=== PATIENT | female | born 1965 | race Caucasian/White ===

== ENCOUNTER 2017-11-06 12:59 | Emergency (ER) | payer OTHER ==
[~2017-11-06] VITALS: Ht 160 cm; Wt 77.1 kg
[2017-11-06] MEDS ORDERED: MECLIZINE 25 MG (ANTIVERT) TAB PO ONE (13:15)
[2017-11-06] MEDS ORDERED: cloNIDine 0.1 MG (CATAPRES) TAB PO ONE (13:15)
--- NOTE | 2017-11-06 13:18 | ED General ---
General Stated Complaint: BLOOD PRESSURE ISSUES Source of Information: Patient Exam Limitations: No Limitations History of Present Illness Time Seen by Provider: 13:17 Initial Comments To ER with intermittent dizziness, headache, vision changes, hypertension since this morning. Blood pressure was found at work to be 140/105. She has no history of hypertension she states. She did finish Cipro for a bladder infection a few days ago Timing/Duration: 4-6 Hours Severity: Moderate Associated Systoms: Headaches Allergies and Home Medications Allergies Coded Allergies: No Known Drug Allergies (Unverified , 11/06/17) Home Medications Alprazolam 0.5 Mg Tablet, (Reported) Aspirin 325 Mg Tablet, 325 MG PO, (Reported) Celecoxib 200 Mg Capsule, (Reported) Cyclobenzaprine HCl 10 Mg Tablet, (Reported) Phentermine HCl 37.5 Mg Tablet, (Reported) Pregabalin 150 Mg Capsule, (Reported) Pregabalin 75 Mg Capsule, (Reported) Varenicline Tartrate 1 Mg Tablet, (Reported) Constitutional: see HPI EENTM: see HPI, blurred vision Respiratory: no symptoms reported Cardiovascular: no symptoms reported Genitourinary: no symptoms reported Musculoskeletal: no symptoms reported Skin: no symptoms reported Psychiatric/Neurological: See HPI, Headache Hematologic/Lymphatic: No Symptoms Reported Immunological/Allergic: no symptoms reported Past Fnpwojz-Xljtzf-Oteexv Hx Patient Social History Recent Foreign Travel: No Contact w/Someone Who Travel: No Physical Exam Vital Signs Vital Sign - Last 12Hours 11/06/17 13:17 Temp 98.0 Pulse 91 Resp 20 B/P (MAP) 170/106 (127) Pulse Ox 95 O2 Delivery Room Air Capillary Refill : General Appearance: No Apparent Distress, WD/WN Eyes: Bilateral Eye Normal Inspection, Bilateral Eye PERRL, Bilateral Eye EOMI HEENT: PERRL/EOMI, TMs Normal, Normal ENT Inspection Neck: Full Range of Motion, Normal Inspection Respiratory: Normal Breath Sounds, No Accessory Muscle Use, No Respiratory Distress Cardiovascular: Regular Rate, Rhythm, Normal Peripheral Pulses Gastrointestinal: Normal Bowel Sounds, Non Tender, Soft Extremity: Normal Capillary Refill, Normal Inspection Neurologic/Psychiatric: Alert, Oriented x3, No Motor/Sensory Deficits, Other ( no nystagmus) Skin: Normal Color, Warm/Dry Comments Blood pressure is 176/106 Progress/Results/Core Measures Suspected Sepsis SIRS Temperature: Pulse: Respiratory Rate: Laboratory Tests 11/06/17 13:45: White Blood Count 8.5 Blood Pressure / Mean: Laboratory Tests 11/06/17 13:45: Creatinine 0.70, Platelet Count 351, Total Bilirubin 0.6 Results/Orders Lab Results Laboratory Tests Test 11/06/17 13:11 11/06/17 13:45 Range/Units Urine Color YELLOW Urine Clarity CLEAR Urine pH 6.5 5-9 Urine Specific [place] 1.010 L 1.016-1.022 Urine Protein NEGATIVE NEGATIVE Urine Glucose (UA) NEGATIVE NEGATIVE Urine Ketones NEGATIVE NEGATIVE Urine Nitrite NEGATIVE NEGATIVE Urine Bilirubin NEGATIVE NEGATIVE Urine Urobilinogen NORMAL NORMAL MG/DL Urine Leukocyte Esterase 1+ H NEGATIVE Urine RBC (Auto) 2+ H NEGATIVE Urine RBC 2-5 H /HPF Urine WBC NONE /HPF Urine Squamous Epithelial Cells 10-25 H /HPF Urine Crystals NONE /LPF Urine Bacteria NEGATIVE /HPF Urine Casts NONE /LPF Urine Mucus NEGATIVE /LPF Urine Culture Indicated NO White Blood Count 8.5 4.3-11.0 10^3/uL Red Blood Count 4.81 4.35-5.85 10^6/uL Hemoglobin 14.5 11.5-16.0 G/DL Hematocrit 43 35-52 % Mean Corpuscular Volume 89 80-99 FL Mean Corpuscular Hemoglobin 30 25-34 PG Mean Corpuscular Hemoglobin Concent 34 32-36 G/DL Red Cell Distribution Width 13.6 10.0-14.5 % Platelet Count 351 130-400 10^3/uL Mean Platelet Volume 9.7 7.4-10.4 FL Neutrophils (%) (Auto) 67 42-75 % Lymphocytes (%) (Auto) 21 12-44 % Monocytes (%) (Auto) 10 0-12 % Eosinophils (%) (Auto) 2 0-10 % Basophils (%) (Auto) 1 0-10 % Neutrophils # (Auto) 5.7 1.8-7.8 X 10^3 Lymphocytes # (Auto) 1.7 1.0-4.0 X 10^3 Monocytes # (Auto) 0.8 0.0-1.0 X 10^3 Eosinophils # (Auto) 0.2 0.0-0.3 10^3/uL Basophils # (Auto) 0.1 0.0-0.1 10^3/uL Sodium Level 140 135-145 MMOL/L Potassium Level 3.8 3.6-5.0 MMOL/L Chloride Level 104 98-107 MMOL/L Carbon Dioxide Level 27 21-32 MMOL/L Anion Gap 9 5-14 MMOL/L Blood Urea Nitrogen 11 7-18 MG/DL Creatinine 0.70 0.60-1.30 MG/DL Estimat Glomerular Filtration Rate > 60 BUN/Creatinine Ratio 16 Glucose Level 90 70-105 MG/DL Calcium Level 9.3 8.5-10.1 MG/DL Total Bilirubin 0.6 0.1-1.0 MG/DL Aspartate Amino Transf (AST/SGOT) 34 5-34 U/L Alanine Aminotransferase (ALT/SGPT) 52 0-55 U/L Alkaline Phosphatase 111 40-136 U/L Troponin I < 0.30 <0.30 NG/ML Total Protein 7.4 6.4-8.2 GM/DL Albumin 4.1 3.2-4.5 GM/DL Thyroid Stimulating Hormone (TSH) 1.25 0.35-4.94 UIU/ML Free Thyroxine 1.06 0.70-1.48 NG/DL My Orders Orders - RYANN GRAHAM [employer] Cbc With Automated Diff (11/06/17 13:15) Comprehensive Metabolic Panel (11/06/17 13:15) Ua Culture If Indicated (11/06/17 13:15) Ct Head Wo (11/06/17 13:15) Clonidine Tablet (Catapres Tablet) (11/06/17 13:15) Troponin I (11/06/17 13:15) Thyroid Stimulating Hormone (11/06/17 13:15) Free T4 (Free Thyroxine) (11/06/17 13:15) Meclizine Tablet (Antivert Tablet) (11/06/17 13:15) Medications Given in ED Current Medications Medications Dose Ordered Sig/Bailee Route Start Time Stop Time Status Last Admin Dose Admin Clonidine HCl 0.1 mg ONCE ONCE PO 11/06/17 13:15 11/06/17 13:18 DC 11/06/17 14:02 0.1 MG Meclizine HCl 25 mg ONCE ONCE PO 11/06/17 13:15 11/06/17 13:18 DC 11/06/17 14:02 25 MG Vital Signs/I&O Vital Sign - Last 12Hours 11/06/17 13:17 Temp 98.0 Pulse 91 Resp 20 B/P (MAP) 170/106 (127) Pulse Ox 95 O2 Delivery Room Air Capillary Refill : Diagnostic Imaging Diagonstic Imaging: CT Comments NAME: ARAVIND MEADOWS [facility] REC#: [id number] PT STATUS: REG ER : 1965 PHYSICIAN: RYANN GRAHAM APRN ADMIT DATE: 11/06/17/ER Signed Date of Exam:11/06/17 CT HEAD WO EXAM: CT head without contrast. TECHNIQUE: Noncontrast axial images of the brain were obtained. INDICATION: Headache and dizziness. FINDINGS: There is no intracranial hemorrhage, edema or mass effect. The brain parenchyma appears unremarkable. No hydrocephalus. The visualized portions of the orbits and calvarium appear unremarkable. The right maxillary sinus demonstrate mucosa thickening as well as mucosal thickening in the ethmoid air cells with suggestion of fluid in the right maxillary sinus. Please note that the sinuses are not fully included on this exam. IMPRESSION: 1. No intracranial abnormality. 2. Opacification in the visualized portion of the right maxillary sinus and ethmoid air cells, could relate to sinusitis. Dictated by: Dictated on workstation # [id number] Dict: 11/06/17 1335 Trans: 11/06/17 1338 [facility] [id number] Interpreted by: NORAH MILLER MD Electronically signed by: NORAH MILLER MD 11/06/17 1338 Departure Impression Impression: Primary Impression: Hypertension Disposition: 01 HOME, SELF-CARE Condition: Stable Departure-Patient Inst. Decision time for Depature: 14:41 Referrals: NO,LOCAL PHYSICIAN (PCP/Family) Primary Care Physician Add. Discharge Instructions: 1. Return to ER for any concerns 2. See your doctor later this week 3. Take the blood pressure medication twice a day only as needed for a blood pressure top number over 150. Scripts Clonidine HCl (Clonidine HCl) 0.1 Mg Tablet 0.1 MG PO BID Y for hypertension, #4 TAB Prov: RYANN GRAHAM APRN 11/06/17 Work/School Note: Work Release Form Date Seen in the Emergency Department: Nov 06, 2017 Return to Work: Nov 07, 2017 Restrictions: No Restrictions RYANN GRAHAM APRN Nov 06, 2017 13:18
[2017-11-06 13:35] LABS: BILIRUBIN,URINE NEGATIVE (NEGATIVE); KETONES,URINE NEGATIVE (NEGATIVE); LEUKOCYTE ESTERASE ,URINE 1+ (NEGATIVE); NITRITE,URINE NEGATIVE (NEGATIVE); PH,URINE 6.5 (5-9); PROTEIN,URINE NEGATIVE (NEGATIVE); UROBILINOGEN,URINE NORMAL (NORMAL)
--- NOTE | 2017-11-06 13:40 | Diagnostic Imaging Report ---
EXAM: CT head without contrast. TECHNIQUE: Noncontrast axial images of the brain were obtained. INDICATION: Headache and dizziness. FINDINGS: There is no intracranial hemorrhage, edema or mass effect. The brain parenchyma appears unremarkable. No hydrocephalus. The visualized portions of the orbits and calvarium appear unremarkable. The right maxillary sinus demonstrate mucosa thickening as well as mucosal thickening in the ethmoid air cells with suggestion of fluid in the right maxillary sinus. Please note that the sinuses are not fully included on this exam. IMPRESSION: 1. No intracranial abnormality. 2. Opacification in the visualized portion of the right maxillary sinus and ethmoid air cells, could relate to sinusitis. Dictated by: Dictated on workstation # [id number]
[2017-11-06 13:53] LABS: BASOPHILS # (AUTO) 0.1 10^3/uL (0.0-0.1); BASOPHILS % (AUTO) 1 % (0-10); EOSINOPHILS # (AUTO) 0.2 10^3/uL (0.0-0.3); EOSINOPHILS % (AUTO) 2 % (0-10); LYMPHOCYTES # (AUTO) 1.7 X 10^3 (1.0-4.0); LYMPHOCYTES % (AUTO) 21 % (12-44); MEAN CORPUSCULAR HEMOGLOBIN 30 PG (25-34); MEAN CORPUSCULAR HGB CONC 34 G/DL (32-36); MEAN CORPUSCULAR VOLUME 89 FL (80-99); MEAN PLATELET VOLUME 9.7 FL (7.4-10.4); MONOCYTES # (AUTO) 0.8 X 10^3 (0.0-1.0); MONOCYTES % (AUTO) 10 % (0-12); NEUTROPHILS # (AUTO) 5.7 X 10^3 (1.8-7.8); NEUTROPHILS % (AUTO) 67 % (42-75); PLATELET COUNT 351 10^3/uL (130-400); RED BLOOD COUNT 4.81 10^6/uL (4.35-5.85); RED CELL DISTRIBUTION WIDTH 13.6 % (10.0-14.5); WHITE BLOOD COUNT 8.5 10^3/uL (4.3-11.0)
[2017-11-06] MEDS ORDERED: CELE-63 (14:06)
[2017-11-06] MEDS ORDERED: CYCL10TA9 (14:06)
[2017-11-06] MEDS ORDERED: ALPR0.5T7 (14:06)
[2017-11-06] MEDS ORDERED: PREG75CA (14:06)
[2017-11-06] MEDS ORDERED: PREG150C (14:06)
[2017-11-06] MEDS ORDERED: PHEN37.53 (14:06)
[2017-11-06] MEDS ORDERED: VARE1TAB22 (14:06)
[2017-11-06] MEDS ORDERED: ASPI-808 PO (14:07)
[2017-11-06 14:15] LABS: ALANINE AMINOTRANSFERASE 52 U/L (0-55); ALBUMIN 4.1 GM/DL (3.2-4.5); ANION GAP 9 MMOL/L (5-14); ASPARTATE AMINO TRANSFERASE 34 U/L (5-34); BILIRUBIN,TOTAL 0.6 MG/DL (0.1-1.0); BLOOD UREA NITROGEN 11 MG/DL (7-18); BUN/CREATININE RATIO 16; CALCIUM 9.3 MG/DL (8.5-10.1); CARBON DIOXIDE 27 MMOL/L (21-32); CHLORIDE 104 MMOL/L (98-107); GFR ESTIMATED > 60; GLUCOSE 90 MG/DL (70-105); POTASSIUM 3.8 MMOL/L (3.6-5.0); SODIUM 140 MMOL/L (135-145); TOTAL PROTEIN 7.4 GM/DL (6.4-8.2)
[2017-11-06 14:37] LABS: THYROID STIMULATING HORMONE 1.25 UIU/ML (0.35-4.94); TROPONIN I < 0.30 NG/ML (<0.30)
[2017-11-06] MEDS ORDERED: CLON0.1T PO (14:43)
[2017-11-06 14:50] VITALS: BP 157/99
== END 2017-11-06 14:50 | disposition home or self-care (01) ==
LOC: ER 13:05
DX: I10 Essential (primary) hypertension (principal); Z79.82 Long term (current) use of aspirin
CPT/HCPCS: 36415; 70450; 80053; 81000; 84439; 84443; 84484; 85025

== ENCOUNTER → 2021-07-02 | Outpatient (CLI) | payer BC, OTHER ==
[~2021-07-02] MED LIST: ALPR0.5T7; ASPI-808 PO; CELE-63; CLN.1T PO; CYCL10TA9; PHEN37.58; PREG150C; PREG75CA; VARE1TAB22
--- NOTE | 2021-07-02 09:49 | Diagnostic Imaging Report ---
INDICATION: Left shoulder pain. TIME OF EXAM: 9:41 AM 3 views of the left shoulder were obtained. Glenohumeral and acromioclavicular alignment are normal. Acromial humeral space is normal. No fracture or dislocation is identified. IMPRESSION: No acute abnormalities detected. Dictated by: Dictated on workstation # [id number]
--- NOTE | 2021-07-02 17:00 | Diagnostic Imaging Report ---
INDICATION: Neck pain. TIME OF EXAM: 9:37 AM AP, lateral and odontoid views of the cervical spine were obtained. There is some straightening of the normal cervical lordotic curvature. There is minimal anterolisthesis C4 on C5 with minimal retrolisthesis of C5 on C6. There is significant degenerative disc disease at C5-C6 level with disc space narrowing and marginal spurring. No fractures are seen. Prevertebral tissues are normal. Odontoid is intact. IMPRESSION: Cervical spondylosis and listhesis. No acute bony abnormality is detected. Dictated by: Dictated on workstation # [id number]
== END ==
LOC: RAD 09:06
PROVIDERS: ATTEND Chiropractor
DX: M47.812 Spondylosis without myelopathy or radiculopathy, cervical region (principal); M43.12 Spondylolisthesis, cervical region
CPT/HCPCS: 72040; 73030